=== PATIENT | female | born 1945 | race American Indian/Alaskan Native ===

== ENCOUNTER 2020-06-09 13:21 | Outpatient (CLI) | payer MEDICARE ==
--- NOTE | 2020-06-09 14:55 | XRay Report ---
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 COMPARISON: None available. FINDINGS: SUPPORT DEVICES: None. HEART / MEDIASTINUM: Normal size of the cardiac silhouette with mild aortic atherosclerosis. Sternoto my changes are noted with abandoned epicardial pacing leads. LUNGS / PLEURA: Clear lungs. No significant pleural effusion. No pneumothorax. ADDITIONAL FINDINGS: No significant additional findings. IMPRESSION: 1. No acute abnormality of the chest. 2. Additional findings as above. Signer Name: Del Michael MD Signed: 06/09/2020 2:50 PM Workstation Name: [id number]
== END 2020-06-09 13:22 | disposition home or self-care (01) ==
LOC: XRAY 13:21
PROVIDERS: ATTEND Internal Medicine
DX: J41.1 Mucopurulent chronic bronchitis (principal); I70.0 Atherosclerosis of aorta; Z98.890 Other specified postprocedural states
CPT/HCPCS: 71046